=== PATIENT | male | born 1935 | race Caucasian/White ===

== ENCOUNTER 2017-12-04 14:00 | Outpatient (RCR) | payer MEDICARE, BC | END 2017-12-04 14:30 | disposition home or self-care (01) | LOC: PT 14:00 | DX: S22.43XD Multiple fractures of ribs, bilateral, subsequent encounter for fracture with routine healing (principal); S42.102D Fracture of unspecified part of scapula, left shoulder, subsequent encounter for fracture with routine healing; W20.8XXD Other cause of strike by thrown, projected or falling object, subsequent encounter | CPT/HCPCS: G8985-GP ==

== ENCOUNTER → 2018-10-17 | Outpatient (CLI) | payer MEDICARE, BC | LOC: RAD 11:20 | DX: S49.90XA Unspecified injury of shoulder and upper arm, unspecified arm, initial encounter (principal); W19.XXXA Unspecified fall, initial encounter ==

== ENCOUNTER 2021-04-11 10:00 | Outpatient (RCR) | payer MEDICARE, BC | END 2021-07-10 | disposition home or self-care (01) | LOC: PT | DX: M25.511 Pain in right shoulder (principal) ==

== ENCOUNTER 2023-04-19 10:02 | Emergency (ER) | payer MEDICARE, BC ==
[~2023-04-19] VITALS: Ht 154.9 cm; Wt 72.7 kg
[2023-04-19] MEDS ORDERED: LISINOPRIL20 MG PO (10:19)
[2023-04-19] MEDS ORDERED: METOPROLOL SUC100 M1 PO (10:20)
[2023-04-19 11:12] LABS: ALBUMIN 3.9 g/dL (3.4-4.8)
[2023-04-19 11:13] LABS: BASO # 0.02 K/mm3 (0.02-0.10); EOS # 0.18 K/mm3 (0.04-0.40); EOS % 1.9 % (0.0-4.0); HEMOGLOBIN 15.3 g/dL (13.5-18.0); LYMPH# 0.94 K/mm3 (1.50-4.00); MEAN CELL VOLUME 98 fl (78-100); MEAN CORPUSCULAR HEMOGLOBIN 33 pg (27-31); MEAN CORPUSCULAR HGB CONC 33 g/dL (33-37); MEAN PLATELET VOLUME 11.6 fl (7.4-10.4); MONO # 1.16 K/mm3 (0.20-0.80); NEU # 7.31 K/mm3 (1.40-6.50); PLATELET COUNT 149 K/mm3 (130-400); RED CELL DISTRIBUTION WIDTH 12.2 % (11.5-14.5); WHITE BLOOD COUNT 9.6 K/mm3 (4.8-10.8)
[2023-04-19 11:14] LABS: CALCIUM 9.1 mg/dL (8.3-10.5)
[2023-04-19 11:15] LABS: TOTAL PROTEIN 6.6 g/dL (6.2-8.1)
[2023-04-19 11:17] LABS: TOTAL BILIRUBIN 0.7 mg/dL (0.2-1.2)
[2023-04-19 12:10] VITALS: BP 168/93
== END 2023-04-19 12:12 | disposition home or self-care (01) ==
LOC: ED 10:02
PROVIDERS: Family Medicine
DX: I10 Essential (primary) hypertension (principal); E66.9 Obesity, unspecified; Z28.310 Unvaccinated for COVID-19; Z68.30 Body mass index [BMI] 30.0-30.9, adult; W18.30XA Fall on same level, unspecified, initial encounter; Y92.009 Unspecified place in unspecified non-institutional (private) residence as the place of occurrence of the external cause